=== PATIENT | female | born 1990 | race Caucasian/White ===

== ENCOUNTER 2017-02-08 23:59 | Emergency (ER) | payer SELFPAY ==
[~2017-02-08] VITALS: Ht 154.9 cm; Wt 57.3 kg
[2017-02-09 00:01] VITALS: TEMP 97.9
[2017-02-09] MEDS ORDERED: PROAIR HFA0.09 MG/AC IH (00:03)
[2017-02-09] MEDS ORDERED: ALLEGRA-D 24HR1 T24 PO (00:04)
[2017-02-09 00:31] LABS: BASO % 0.3 % (0.0-2.0); EOS # 0.1 (0.0-0.7); EOS % 0.7 % (0-4.0); GRAN # 9.3 (1.4-6.5); GRAN % 89.2 % (42.2-75.2); HEMATOCRIT 42.2 % (37.0-47.0); HEMOGLOBIN 14.1 g/dl (12.5-16.0); LYMPH # 0.6 (1.2-3.4); LYMPH % 5.6 % (20.0-51.0); MEAN CELL VOLUME 83 fl (80.0-100.0); MEAN CORPUSCULAR HEMOGLOBIN 28 pg (27.0-31.0); MEAN CORPUSCULAR HGB CONC 33 g/dl (33.0-37.0); MEAN PLATELET VOLUME 11.4 fl (7.4-10.4); MONO # 0.4 (0.1-0.6); MONO % 3.9 % (1.7-9.3); PLATELET COUNT 283 K/mm3 (130-400); RED BLOOD COUNT 5.07 M/mm3 (4.10-5.30); WHITE BLOOD COUNT 10.5 K/mm3 (4.8-10.8)
[2017-02-09 00:40] LABS: ADJUSTED CALCIUM 8.4 mg/dL (8.4-10.2); ALBUMIN 5.1 gm/dL (3.5-5.0); BILIRUBIN,TOTAL 0.6 mg/dL (0.0-1.0); CALCIUM 9.3 mg/dL (8.4-10.2); CREATININE, serum 0.64 mg/dL (0.52-1.25); POTASSIUM 3.8 mmol/L (3.4-5.0); TOTAL PROTEIN 8.5 gm/dL (6.4-8.2)
[2017-02-09 01:25] VITALS: PULSE 105
[2017-02-09 02:26] VITALS: BP 109/74
== END 2017-02-09 02:36 | disposition home or self-care (01) ==
LOC: COL.ER 23:59
PROVIDERS: Physician Assistant
DX: K52.9 Noninfective gastroenteritis and colitis, unspecified (principal); Z90.89 Acquired absence of other organs
CPT/HCPCS: J2550; J7030

== ENCOUNTER 2017-10-28 18:22 | Emergency (ER) | payer OTHER ==
[~2017-10-28] VITALS: Ht 152.4 cm; Wt 67.3 kg
[~2017-10-28 18:22] MED LIST: ALLEGRA-D 24HR1 T24 PO; PROAIR HFA0.09 MG/AC IH
[2017-10-28 18:26] VITALS: BP 133/75; TEMP 98.2
[2017-10-28 19:57] VITALS: PULSE 99
== END 2017-10-28 20:00 | disposition home or self-care (01) ==
LOC: COL.ER 18:22
DX: G43.909 Migraine, unspecified, not intractable, without status migrainosus (principal); J45.909 Unspecified asthma, uncomplicated
CPT/HCPCS: J1200; J1885; J2765; J7030

== ENCOUNTER 2018-01-19 05:26 | Emergency (ER) | payer OTHER ==
[~2018-01-19] VITALS: Ht 154.9 cm; Wt 65.0 kg
[2018-01-19 05:30] VITALS: BP 122/65; TEMP 98.5
[2018-01-19 07:32] VITALS: PULSE 99
== END 2018-01-19 07:33 | disposition home or self-care (01) ==
LOC: COL.ER 05:26
DX: J67.0 Farmer's lung (principal); J45.909 Unspecified asthma, uncomplicated
CPT/HCPCS: J1100

== ENCOUNTER → 2021-06-10 | Outpatient (CLI) | payer BC | LOC: COL.RAD 06-03 14:15 | DX: R22.1 Localized swelling, mass and lump, neck (principal) ==

== ENCOUNTER 2021-09-07 17:14 | Emergency (ER) | payer BC ==
[~2021-09-07] VITALS: Ht 154.9 cm; Wt 68.2 kg
[2021-09-07 17:55] LABS: COLLECTION METHOD CLEAN CATCH
[2021-09-07 18:04] LABS: MUCOUS Present (NOT PRESENT); PH 6 (5-8); SQUAMOUS EPITHELIAL 0-2 /hpf (0-10); URINE APPEARANCE Hazy (CLEAR/HAZY); URINE BACTERIA None Seen /hpf (NONE SEEN); URINE BILIRUBIN Negative (NEGATIVE); URINE BLOOD Negative (NEGATIVE); URINE COLOR Yellow (YELLOW); URINE GLUCOSE Negative (NEGATIVE); URINE KETONE Trace (NEGATIVE); URINE LEUKOCYTE ESTERASE Negative (NEGATIVE); URINE NITRATE Negative (NEGATIVE); URINE PROTEIN(semi-quant) Negative (NEGATIVE); URINE RBC 0-2 /hpf (0-2); URINE UROBILINOGEN Negative (NEGATIVE)
[2021-09-07 18:05] LABS: BASO % 0.4 % (0.0-2.0); EOS # 0.2 K/mm3 (0.0-0.7); EOS % 2.6 % (0.0-4.0); GRAN % 64.4 % (42.2-75.2); HEMATOCRIT 39.4 % (37.0-47.0); HEMOGLOBIN 13.3 g/dl (12.5-16.0); LYMPH # 2.3 K/mm3 (1.2-3.4); LYMPH % 24.2 % (20.0-51.0); MEAN CELL VOLUME 83 fl (80.0-100.0); MEAN CORPUSCULAR HEMOGLOBIN 28 pg (27-31); MEAN CORPUSCULAR HGB CONC 34 g/dl (33.0-37.0); MEAN PLATELET VOLUME 11.7 fl (7.4-10.4); MONO # 0.8 K/mm3 (0.1-0.6); MONO % 8.2 % (1.7-9.3); PLATELET COUNT 326 K/mm3 (130-400); RED BLOOD COUNT 4.73 M/mm3 (4.10-5.30); REDCELL DISTRIBUTION WIDTH-CV 13.2 % (11.5-14.5)
[2021-09-07 18:18] LABS: ALANINE AMINOTRANSFERASE 25 U/L (0-55); ALKALINE PHOSPHATASE 82 U/L (40-150); ANION GAP 14 mmol/L (7-16); AST,SGOT 16 U/L (5-34); BILIRUBIN,TOTAL 0.5 mg/dL (0.2-1.2); BLOOD UREA NITROGEN 9 mg/dL (7-19); CALCIUM 9.5 mg/dL (8.4-10.2); CARBON DIOXIDE 20 mmol/L (22-29); CHLORIDE 107 mmol/L (98-107); CREATININE, serum 0.68 mg/dL (0.57-1.11); GLUCOSE 85 mg/dL (70-99); LIPASE 20 U/L (8-78); POTASSIUM 3.6 mmol/L (3.5-4.5); SODIUM 141 mmol/L (136-145); TOTAL PROTEIN 7.6 gm/dL (6.2-8.1)
[2021-09-07 18:25] LABS: TROPONIN-I < 0.010 ng/mL (0.00-0.033)
[2021-09-07 19:54] VITALS: BP 100/65; PULSE 90
== END 2021-09-07 19:55 | disposition home or self-care (01) ==
LOC: COL.ER 17:14
PROVIDERS: Physician Assistant
DX: M94.0 Chondrocostal junction syndrome [Tietze] (principal)
CPT/HCPCS: J1885; J7030